=== PATIENT | female | born 1970 | race Caucasian/White ===

== ENCOUNTER 2016-08-28 11:24 | Emergency (ER) | payer OTHER ==
[~2016-08-28] VITALS: Ht 180.3 cm; Wt 101.5 kg
[~2016-08-28 11:24] MED LIST: AMLO5TAB4 PO; BACTDS PO; CEPH-443 PO; CYCL-319 PO; GLIM4TAB PO; GLIP-95 PO; IBUP-1542 PO; LANT3I SC; METF500T4 PO; TRAM-40 PO; ULT50 PO
[2016-08-28 11:35] VITALS: Ht 180.3 cm; Wt 101.5 kg
[2016-08-28 13:43] VITALS: BP 122/75; PULSE 72; RESP 19; TEMP 98.2
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
== END 2016-08-28 13:44 | disposition home or self-care (01) ==
LOC: FTE 11:24
DX: S63.601A Unspecified sprain of right thumb, initial encounter (principal); J45.909 Unspecified asthma, uncomplicated; I10 Essential (primary) hypertension; E11.9 Type 2 diabetes mellitus without complications; X50.1XXA Overexertion from prolonged static or awkward postures, initial encounter; Y92.9 Unspecified place or not applicable; Z79.4 Long term (current) use of insulin; Z79.84 Long term (current) use of oral hypoglycemic drugs; Z72.0 Tobacco use
CPT/HCPCS: 29130; Z7502